=== PATIENT | female | born 1990 | race Caucasian/White ===

== ENCOUNTER 2018-02-22 13:04 | Inpatient (IN) | payer OTHER ==
--- NOTE | 2018-02-22 14:26 | HP ---
General Information - General Information Maternal Age: 27 Grav: 1 Para: 0 SAB: 0 IEA: 0 Estimated Due Date: 02/19/18 Determined By: LMP Gestational Age in Weeks and Days: 40 Weeks and 3 Days Maternal Blood Type and Rh: A Negative - Results this Serology/RPR Result: Non-Reactive Rubella Result: Non-Immune HBsAg Result: Negative HIV Result: Negative GBS Culture Result: Negative Past Medical History Delivery History: See Records - G1 Pertinent Past Medical History: Non-Contributory Pertinent Past Surgical History: None - Antepartal Records Antepartal Records: Reviewed, Complicated by: - Rubella NI, Rh neg, mild hypothyroidism, late HTN Review of Systems Constitutional: Comfortable CV Complaint: No Respiratory: Shortness of Breath: No Gastrointestinal: No Nausea/Vomiting Genitourinary: No Dysuria, No Bleeding, No Leaking Fluid Musculoskeletal: No Complaint Neurological: No Headache Movement: Normal Exam Allergies/Adverse Reactions: Allergies No Known Allergies Allergy (Verified 02/22/18 14:23) Vital Signs 02/22/18 14:15 Temperature 99.3 F Pulse Rate 110 Respiratory 18 Rate Blood Pressure 129/90 (mmHg) O2 Sat by Pulse 99 Oximetry Lab Values - Entire Visit: Plt 120 Uric acid 5.6 24hr urine protein 1560mg - Measurements Height: 5 ft 6 in Weight: 181 lb Weight in lbs: 181 Body Mass Index (BMI): 29.2 Pre- Weight: 140 lb Weight Gained This : 41 lbs and 0 ozs - Exam Abdomen: No Upper Quadrant Pain Breast: Breast Exam Deferred CVA: No CVA Tenderness Heart: Normal Rhythm/Heart Sounds HEENT: No Significant Findings Lungs: Clear Bilaterally Thyroid: No Thyromegaly - Abdominal Exam Abdomen Exam: Non-Tender, Fundal Height Consistent with Dates - Ultrasound/Biophysical Profile Ultrasound Status: Not Done Targeted Exam Findings Estimated Weight: 7 lbs Cervical Exam: 2cm - -3cm Effacement: 80% Presenting Part: Vertex Membrane Status: Intact EFM Findings - External Monitor Findings Baseline Heart Rate: 130 External Monitor Findings: Accelerations Present, No Pattern of Variable or Late Decelerations, Variability Moderate Contractions: Regular, Mild, Moderate, 45-90 Seconds Contraction Frequency: Q2-5 min Assessment/Plan - Reason for Visit Reason for Visit: 27yo G1 at 40+3 wks with mild pre-eclampsia based on new HTN and elevated urine protein. No severe pre-e features at this time although Plt decreased to 120. Also already appears to be in early labor, so will continue to manage. Pt desires epidural when she gets more uncomfortable. - Obstetrical Risk Factors Obstetrical Risk Factors: PreEclampsia - Plan Plan: Early Labor Plan Comment: Plan to manage labor actively
[2018-02-22] MEDS ORDERED: EPHEDrine (Pressors)* 50 MG/ML VIAL IV PUSH PRN (15:37)
[2018-02-22] MEDS ORDERED: Phenylephrine IV* 40 MCG/ML 10 ML SYRINGE IV PUSH PRN (15:37)
[2018-02-22] MEDS ORDERED: Famotidine TAB* 20 MG PO PRN (15:37)
[2018-02-22] MEDS ORDERED: Sodium Citrate/Citric Acid* 15 ML UDC PO PRN (15:37)
[2018-02-22] MEDS ORDERED: OBEPIDURAL* 250 ML EPIDURAL SCH (16:00)
[2018-02-22] MEDS ORDERED: Oxytocin in LR* 20 UNITS/1,000 ML BAG IVPB ONE (23:51)
[2018-02-23] MEDS ORDERED: Witch Hazel PAD* JAR TOPICAL PRN (00:24)
[2018-02-23] MEDS ORDERED: Acetaminophen TAB* 325 MG PO PRN (00:24)
[2018-02-23] MEDS ORDERED: Dibucaine 1% 28.35 GM TUBE PR PRN (00:24)
[2018-02-23] MEDS ORDERED: Measles, Mumps,Rubella VACC* 0.5 ML/VIAL SUBCUT ONE (00:25)
[2018-02-23] MEDS ORDERED: RHO D Immune Globulin (HUMAN)* 300 MCG = 1,500 I.U. INJ IM ONE (00:25)
[2018-02-23] MEDS ORDERED: Oxytocin in LR* 20 UNITS/1,000 ML BAG IVPB SCH (01:00)
[2018-02-23] MEDS ORDERED: Simethicone TAB* 80 MG TAB.CHEW PO SCH (08:30)
[2018-02-23] MEDS: Docusate CAP* 100 MG PO SCH ×3 (09:08→21:29)
[2018-02-23] MEDS: Levothyroxine TAB* 25 MCG TAB PO SCH (16:02)
[2018-02-24 06:24] LABS: ABS Basophils 0 10^3/ul (0-0.2); ABS Eosinophils 0 10^3/ul (0-0.6); ABS Lymphocytes 1.8 10^3/ul (1.0-4.8); ABS Monocytes 0.7 10^3/ul (0-0.8); ABS Neutrophils 8.1 10^3/ul (1.5-7.7); ABS Nucleated RBC 0 10^3/ul; Eosinophil % 0 % (0-6); Hematocrit 32 % (35-47); Hemoglobin 10.9 g/dl (12.0-16.0); Lymphocyte % 16.6 % (25-47); Mean Corpuscular HGB Conc 35 g/dl (31-36); Mean Corpuscular Hemoglobin 31 pg (27-31); Mean Corpuscular Volume 90 fL (80-97); Mean Platelet Volume 9.8 um3 (7.4-10.4); Nucleated Red Blood Cells % 0; Platelet Count 110 10^3/ul (150-450); Red Blood Count 3.51 10^6/ul (4.00-5.40); Red Cell Distribution Width 15 % (10.5-15); White Blood Count 10.6 10^3/ul (3.5-10.8)
[2018-02-24] MEDS: Levothyroxine TAB* 25 MCG TAB PO SCH (06:58)
[2018-02-24 07:58] VITALS: BP 138/79
[2018-02-24] MEDS ORDERED: Ferrous Gluconate TAB* 324 MG TAB PO SCH (09:00)
[2018-02-24] MEDS: Docusate CAP* 100 MG PO SCH (09:51)
== END 2018-02-24 09:53 | disposition home or self-care (01) | DRG 560 ==
LOC: MCHOBOUT 13:04 → MCHOB 13:49
PROVIDERS: ADMIT Obstetrics & Gynecology; ATTEND Obstetrics & Gynecology
PROC: 10E0XZZ Delivery of Products of Conception, External Approach (ICD-10-PCS; principal; 2018-02-22)
PROC: 10907ZC Drainage of Amniotic Fluid, Therapeutic from Products of Conception, Via Natural or Artificial Opening (ICD-10-PCS; 2018-02-22)
PROC: 4A1HXCZ Monitoring of Products of Conception, Cardiac Rate, External Approach (ICD-10-PCS; 2018-02-22)
PROC: 0UQMXZZ Repair Vulva, External Approach (ICD-10-PCS; 2018-02-22)
PROC: 10H07YZ Insertion of Other Device into Products of Conception, Via Natural or Artificial Opening (ICD-10-PCS; 2018-02-22)
PROC: 4A1H7CZ Monitoring of Products of Conception, Cardiac Rate, Via Natural or Artificial Opening (ICD-10-PCS; 2018-02-22)
DX: O48.0 Post-term pregnancy (principal); O14.04 Mild to moderate pre-eclampsia, complicating childbirth; O99.284 Endocrine, nutritional and metabolic diseases complicating childbirth; E03.9 Hypothyroidism, unspecified; O70.0 First degree perineal laceration during delivery; Z3A.40 40 weeks gestation of pregnancy; Z37.0 Single live birth; Z67.11 Type A blood, Rh negative
CPT/HCPCS: 36415; 85025; 86850; 86900; 86901; 90707; A9270-GY

== ENCOUNTER 2020-07-05 23:17 | Inpatient (IN) ==
[2020-07-05] MEDS ORDERED: Penicillin G Potassium IV 5,000,000 UNITS in NS 0.9% 100 ml BAG 100 ML IVPB ONE (23:41)
[2020-07-05] MEDS ORDERED: Lactated Ringers 1000 ml BAG 1,000 ML IV ONE (23:41)
[2020-07-06] MEDS ORDERED: Oxytocin in LR 20 UNITS/1,000 ML BAG IVPB ONE (00:06)
[2020-07-06] MEDS ORDERED: RHO D Immune Globulin (HUMAN) 300 MCG = 1,500 I.U. INJ IM PRN (00:09)
[2020-07-06] MEDS ORDERED: Dibucaine 1% OINT 28.35 GM TUBE PR PRN (00:09)
[2020-07-06] MEDS ORDERED: Glycerin ADULT 2.4 gm SUPP PR PRN (00:09)
[2020-07-06] MEDS ORDERED: Oxytocin in LR 20 UNITS/1,000 ML BAG IVPB SCH (01:00)
[2020-07-06] MEDS ORDERED: Lactated Ringers 1000 ml BAG 1,000 ML IV SCH (01:00)
[2020-07-06] MEDS ORDERED: Dibucaine 1% OINT 28.35 GM TUBE ONE (01:49)
[2020-07-06] MEDS ORDERED: Witch Hazel PAD JAR ONE (01:50)
[2020-07-06] MEDS: Witch Hazel PAD JAR TOPICAL PRN (01:51)
[2020-07-06 02:10] LABS: ABS Basophils 0.1 10^3/ul (0-0.2); ABS Lymphocytes 1.8 10^3/ul (1.0-4.8); ABS Monocytes 0.8 10^3/ul (0-0.8); ABS Neutrophils 10.6 10^3/ul (1.5-7.7); Hematocrit 39 % (35-47); Hemoglobin 13.3 g/dL (12.0-16.0); Lymphocyte % 13.4 %; Mean Corpuscular HGB Conc 34 g/dL (31-36); Mean Corpuscular Hemoglobin 30 pg (27-31); Mean Corpuscular Volume 90 fL (80-97); Mean Platelet Volume 11.2 fL (7.4-10.4); Platelet Count 165 10^3/uL (150-450); Red Blood Count 4.39 10^6 /uL (3.70-4.87); Red Cell Distribution Width 13 % (10-15); White Blood Count 13.3 10^3/uL (3.5-10.8)
[2020-07-06 02:30] LABS: Urine Benzodiazepine Screen None Detected (None Detect); Urine Cannabinoids Screen None Detected (None Detect); Urine Opiates Screen None Detected (None Detect)
[2020-07-06] MEDS ORDERED: Penicillin G Potassium IV 3,000,000 UNITS in NS 0.9% 100 ml BAG 100 ML IVPB SCH (04:00)
[2020-07-07 06:18] LABS: ABS Lymphocytes 2.3 10^3/ul (1.0-4.8); ABS Monocytes 0.5 10^3/ul (0-0.8); ABS Neutrophils 5.2 10^3/ul (1.5-7.7); Eosinophil % 0.1 %; Hematocrit 35 % (35-47); Mean Corpuscular HGB Conc 34 g/dL (31-36); Mean Corpuscular Hemoglobin 31 pg (27-31); Mean Corpuscular Volume 89 fL (80-97); Mean Platelet Volume 9.7 fL (7.4-10.4); Platelet Count 134 10^3/uL (150-450); Red Blood Count 3.91 10^6 /uL (3.70-4.87); Red Cell Distribution Width 14 % (10-15); White Blood Count 8.1 10^3/uL (3.5-10.8)
[2020-07-07 20:18] VITALS: BP 122/77
[2020-07-07] MEDS: Witch Hazel PAD JAR TOPICAL PRN (20:24)
== END 2020-07-07 20:58 | disposition home or self-care (01) | DRG 560 ==
LOC: MCHOBOUT 23:17 → MCHOB 23:41
PROVIDERS: ADMIT Obstetrics & Gynecology; ATTEND Midwife